=== PATIENT | female | born 1980 | race Caucasian/White ===

== ENCOUNTER 2017-01-19 11:26 | Emergency (ER) | payer OTHER ==
[~2017-01-19] VITALS: Ht 172.7 cm; Wt 190.9 kg
[2017-01-19] MEDS ORDERED: LISI-542 PO (11:40)
[2017-01-19] MEDS ORDERED: ATOR1TAB21 PO (11:40)
[2017-01-19] MEDS ORDERED: PREG25CA PO (11:40)
[2017-01-19] MEDS ORDERED: POTA20TA PO (11:40)
[2017-01-19] MEDS ORDERED: BUME1TAB27 PO (11:40)
[2017-01-19] MEDS ORDERED: TOPR100T PO (11:40)
[2017-01-19] MEDS ORDERED: ELIQ5TAB PO (11:40)
[2017-01-19] MEDS ORDERED: BYDU1INJ SC (11:40)
[2017-01-19] MEDS ORDERED: PRIL20TA2 PO (11:43)
[2017-01-19] MEDS ORDERED: GI COCKTAIL 50ML BTL(HYOSCYAMINE/MAALOX/LIDOCAINE VISCOUS)(1:3:1) PO ONE (12:15)
[2017-01-19 12:27] LABS: BASO % 0.5 % (0.0-1.0); EOS # 0.1 K/mm3 (0.0-0.50); EOS % 2.1 % (0.0-3.0); LARGE UNSTAINED CELL # 0.1 K/mm3 (0.0-0.4); LARGE UNSTAINED CELL % 1.6 % (0.0-4.0); LYMPH # 1.4 K/mm3 (1.5-4.5); LYMPH % 27.7 % (24.0-44.0); MEAN CORPUSCULAR HEMOGLOBIN 21.7 pg (27.0-33.0); MEAN CORPUSCULAR HGB CONC 30.5 g/dl (32.0-36.5); MEAN CORPUSCULAR VOLUME 71.1 fl (80.0-96.0); MONO # 0.3 K/mm3 (0.0-0.8); MONO % 5.5 % (0.0-5.0); NEUTROPHILS # 3.1 K/mm3 (1.8-7.7); NEUTROPHILS % 62.5 % (36.0-66.0); PLATELET COUNT, AUTOMATED 318 k/mm3 (150-450); RED CELL DISTRIBUTION WIDTH 16.1 % (11.5-14.5)
[2017-01-19 12:48] LABS: CONTROL LINE HCG INT CTR LINE PRESENT
[2017-01-19] MEDS ORDERED: MORPHINE 4 MG/ML 1ML SYRINGE IV PRN (13:00)
[2017-01-19 13:04] LABS: ALBUMIN 3.3 GM/DL (3.2-5.2); ALBUMIN/GLOBULIN RATIO 0.79 (1.00-1.93); ALKALINE PHOSPHATASE 192 U/L (45-117); ALT/SGPT 291 U/L (12-78); ANION GAP 8 MEQ/L (8-16); AST/SGOT 272 U/L (15-37); BILIRUBIN,DIRECT 1.9 MG/DL (0.0-0.2); BILIRUBIN,TOTAL 2.9 MG/DL (0.2-1.0); CALCIUM LEVEL 9.1 MG/DL (8.5-10.1); CARBON DIOXIDE LEVEL 30 MEQ/L (21-32); CHLORIDE LEVEL 105 MEQ/L (98-107); CREATININE FOR GFR 0.85 MG/DL (0.55-1.02); GLOMERULAR FILTRATION RATE > 60.0 (>60); GLUCOSE, FASTING 99 MG/DL (70-105); POTASSIUM SERUM 3.1 MEQ/L (3.5-5.1); SODIUM LEVEL 143 MEQ/L (136-145); TOTAL PROTEIN 7.5 GM/DL (6.4-8.2)
[2017-01-19 13:09] LABS: BLOOD UREA NITROGEN 13 MG/DL (7-18)
[2017-01-19] MEDS ORDERED: ONDANSETRON 4MG/2ML VIAL (J2405) As Ordered ONE (13:11)
[2017-01-19] MEDS ORDERED: ONDANSETRON 4MG/2ML VIAL (J2405) IV ONE (13:15)
--- NOTE | 2017-01-19 14:26 | REP ---
Chest PA and lateral: 01/19/2017. Clinical history: chest, epigastric pain. Findings: Sternotomy wires and mitral valve prosthesis are noted. Heart has left ventricular configuration mildly enlarged. There is some venous hypertension but no temi edema, definite effusion or dense consolidation. The aorta is mildly tortuous. Airway intact and bony thorax shows no acute compression deformity. The lung mera show some minor basilar crowded markings and patchy atelectasis. No dense consolidation with air bronchograms. Impression: 1. Some basilar atelectatic change with some cardiomegaly, sternotomy and mitral valve replacement. No definite effusion or dense consolidation. 2. Pulmonary venous hypertension without temi edema. Signed by Olivier Tolbert MD 01/19/2017 09:21 P
--- NOTE | 2017-01-19 15:29 | REP ---
LIMITED ABDOMINAL ULTRASOUND: 01/19/2017. Clinical history: 37-year-old female with abdominal pain. Findings: There were no prior studies. Liver shows some mild diffuse increased echogenicity suggesting fatty liver change. There is no hepatic mass or biliary dilatation. Gallbladder is distended with stone and sludge within. There is no pericholecystic fluid. No sonographic Turner's sign noted. The common duct is 9.5 mm, which is dilated. I do not see a definite stone within that portion. Some of the more distal parts of the common duct are obscured by gas shadowing. Pancreas is limited in evaluation due to gas shadowing. That portion of the common duct and pancreatic head grossly intact without echogenic focus evident. Right kidney is 10.8 x 5.8 x 5.1 cm without hydronephrosis or stone. No free fluid. Impression: 1. Distended gallbladder with sludge and stones within, but no sonographic Turner sign. The common duct is 9.5 mm, which is dilated. I cannot see a definite stone within it, but portions of the common duct are obscured. Further evaluation of the common duct with MRCP may be helpful. 2. Fatty change in the liver without mass or biliary dilatation. No ascites. 3. Limited evaluation of the pancreas without gross abnormality. The right kidney unremarkable. Signed by Olivier Tolbert MD 01/19/2017 09:22 P
[2017-01-19] MEDS ORDERED: KCL 40MEQ in NS 1000ML 1,000 ML IV SCH (16:30)
[2017-01-19 17:42] VITALS: BP 130/73
--- NOTE | 2017-01-19 18:40 | ECGEPIP ---
Stationary ECG Study [facility] - ED Test Date: 2017-01-19 Pat Name: GAUTAM VEGA Department: Room: - Gender: F [employer] Machine Operator: rn : 1980 Requested By: JESUS Anguiano PA-C Order Number: [id number] Reading MD: Pranay Lancaster Measurements Intervals [place] Rate: 77 P: -4 IN: 186 QRS: 20 QRSD: 104 T: 5 QT: 393 QTc: 447 Interpretive Statements SINUS RHYTHM POSSIBLE LAE ST DEVIATION AND MODERATE T-WAVE ABNORMALITY, CONSIDER ANTEROLATERAL ISCHEMIA PRIOR INFERIOR INFARCT NO PRIORS Electronically Signed On 01-19-2017 18:39:36 EDT by Pranay Lancaster
== END 2017-01-19 18:12 | disposition short-term general hospital (02) ==
LOC: M ED 11:26
DX: K80.70 Calculus of gallbladder and bile duct without cholecystitis without obstruction (principal); K83.8 Other specified diseases of biliary tract; R11.10 Vomiting, unspecified; J98.11 Atelectasis; Z95.2 Presence of prosthetic heart valve; E11.9 Type 2 diabetes mellitus without complications; I11.0 Hypertensive heart disease with heart failure; I50.9 Heart failure, unspecified; E78.5 Hyperlipidemia, unspecified; I49.9 Cardiac arrhythmia, unspecified; E28.2 Polycystic ovarian syndrome; Z87.891 Personal history of nicotine dependence; Z79.899 Other long term (current) drug therapy; Z79.01 Long term (current) use of anticoagulants
CPT/HCPCS: 71020; 76705; 80048; 80076; 82550; 82553; 83690; 84443; 84703; 85025; 93005; 93041; 94760; 96374; 96375; 99285; J2405